=== PATIENT | female | born 1990 | race African-American/Black ===

== ENCOUNTER 2016-08-30 08:41 | Emergency (ER) | payer OTHER ==
[2016-08-30 08:49] VITALS: BMI 29.0
[2016-08-30 08:52] VITALS: BP 139/77; PULSE 93; TEMP 98.8
[2016-08-30] MEDS ORDERED: IBUPROFEN 600 MG TABLET (FP) PO ONE (09:18)
--- NOTE | 2016-08-30 09:23 | PDOC ---
History of Present Illness - General Chief Complaint: Injury Stated Complaint: INJURY Time Seen by Provider: 08/30/16 08:58 History Source: Patient Exam Limitations: No Limitations - History of Present Illness Initial Comments: 08/30/16 09:23 25 yr female states she injured her right foot getting out of a cab when the communicable disease specialist took off her foot was still in the car. Occurred: reports: just prior to arrival Severity: reports: mild Pain Location: reports: lower extremity (right foot ) Past History - Past Medical History Allergies/Adverse Reactions: Allergies Allergy/AdvReac Type Severity Reaction Status Date / Time No Known Allergies Allergy Verified 08/30/16 08:52 Home Medications: Ambulatory Orders NK [No Known Home Medication] 08/30/16 Anemia: Yes - Psycho/Social/Smoking Cessation Hx Anxiety: No Suicidal Ideation: No Smoking History: Current every day smoker Have you smoked in the past 12 months: Yes Number of Cigarettes Smoked Daily: 10 Information on smoking cessation initiated: Yes 'Breaking Loose' booklet given: 08/30/16 Hx Alcohol Use: Yes (SOCIAL) Drug/Substance Use Hx: No Substance Use Type: None Trauma Specific PMHX - Complaint Specific PMHX Arthritis: No Back Injury: No Neck Injury: No Hx Sacro Iliac Joint Dysfunction: No Review of Systems - Review of Systems Able to Perform ROS?: Yes Is the patient limited Salvadorean proficient: No Constitutional: No: Symptoms Reported HEENTM: No: Symptoms Reported Respiratory: No: Symptoms reported Cardiac (ROS): No: Symptoms Reported ABD/GI: No: Symptoms Reported : No: Symptoms Reported Musculoskeletal: Yes: See HPI *Physical Exam - Vital Signs Last Vital Signs Temp Pulse Resp BP Pulse Ox 98.8 F 93 H 20 139/77 100 08/30/16 08:48 08/30/16 08:48 08/30/16 08:48 08/30/16 08:48 08/30/16 08:48 - Physical Exam General Appearance: Yes: Nourished, Appropriately Dressed HEENT: positive: EOMI, ANGELINA, TMs Normal, Pharynx Normal Neck: positive: Supple Respiratory/Chest: positive: Lungs Clear, Normal Breath Sounds Cardiovascular: positive: Regular Rhythm, Regular Rate Musculoskeletal: positive: Normal Inspection Extremity: positive: Normal Capillary Refill, Normal Inspection, Normal Range of Motion, Tender (right forefoot, lateral right foot, no swelling no deformity no bruising ) Integumentary: positive: Normal Color, Dry, Warm Neurologic: positive: Fully Oriented, Alert, Normal Mood/Affect, Normal Response , Motor Strength / ED Treatment Course - ADDITIONAL ORDERS Additional order review: Laboratory Results 08/30/16 09:00 Urine HCG, Qual Negative - RADIOLOGY Radiology Studies Ordered: Category Date Time Status ANKLE & FOOT-RIGHT* [RAD] Stat Radiology 08/30/16 09:18 Ordered Medical Decision Making - Medical Decision Making 08/30/16 09:28 cc: right foot/ankle injury getting out of a cab no deformity or swelling nv intact will get xray after ruling out motrin for pain *DC/Admit/Observation/Transfer Diagnosis at time of Disposition: Right foot sprain Qualifiers: Encounter type: initial encounter Qualified Code(s): S93.601A - Unspecified sprain of right foot, initial encounter - Discharge Dispostion Disposition: HOME Condition at time of disposition: Good - Referrals Referrals: Daphney López MD [Primary Care Provider] - Simone Ordoñez MD [Staff Physician] - - Patient Instructions Additional Instructions: elevate foot and apply ice to area of pain every 2-3hrs for 20 minutes for the next 2 days while awake use the hard sole shoe to bear weight take motrin over the counter also advil or ibbuprofen for pain follow with the orthopedist in 5-7 days if no improvement or any worsening pain - Post Discharge Activity Work/School Note: Back to Work
== END 2016-08-30 10:22 | disposition home or self-care (01) ==
LOC: JERFT 08:41
DX: S93.601A Unspecified sprain of right foot, initial encounter (principal); W23.0XXA Caught, crushed, jammed, or pinched between moving objects, initial encounter; Y93.89 Activity, other specified; Y92.89 Other specified places as the place of occurrence of the external cause; F17.210 Nicotine dependence, cigarettes, uncomplicated
CPT/HCPCS: 73610-TC-RT; 73630-TC-RT; 84703; 99282-25